=== PATIENT | male | born 1960 | race Asian ===

== ENCOUNTER 2017-08-04 08:53 | Emergency (ER) | payer MEDICAID, OTHER ==
[2017-08-04] MEDS ORDERED: NS 1,000 ML IV ONE (09:30)
[2017-08-04] MEDS ORDERED: KETOROLAC 30 MG/1 ML SDV IVP ONE (09:35)
[2017-08-04] MEDS ORDERED: ONDANSETRON 4 MG/2 ML VIAL IVP ONE (09:35)
[2017-08-04 09:38] LABS: PLATELET COUNT 187 10^3/uL (150-400)
[2017-08-04] MEDS ORDERED: TAMSULOSIN HCL 0.4 MG CAP PO ONE (11:09)
--- NOTE | 2017-08-04 11:18 | EDPHY ---
H & P Time Seen by Provider: 08/04/17 09:10 HPI/ROS: HPI Left flank pain. 57-year-old male by private vehicle. This patient reports that he developed left flank pain with radiation to the left groin at approximately 5:00 a.m. This morning. He reports he has had some nausea but no vomiting. He reports 2 similar episodes of this pain in the last week that were less extreme and self resolved after short period of time. He reports that this pain has been unrelenting. He describes it as cramping and aching. No fever. No gross hematuria. No history of trauma. No other complaints. ROS: Constitutional: No fever, no chills. No weakness. Eyes: No discharge. No changes in vision. ENT: No sore throat. No nasal congestion or rhinorrhea. Respiratory: No cough. No shortness of breath. Cardiac: No chest pain, no palpitations. Gastrointestinal: No abdominal pain, no vomiting, no diarrhea. Genitourinary: No hematuria. No dysuria or increased frequency with urination. Musculoskeletal: As above. No neck pain. No myalgias or arthralgias. Skin: No rashes. Neurological: No headache. No focal weakness or altered sensation. Past medical history: Kidney stones. Social history: Nonsmoker. Here by himself. No alcohol. Physical Exam: General Appearance: Alert, uncomfortable but not in distress. This patient is responding to questions appropriately and in full sentences. This patient appears well-hydrated and well-nourished. Eyes: Pupils equal and round no pallor or injection. No lid edema, erythema or injection. Respiratory: There are no retractions, lungs are clear to auscultation with good air movement bilaterally. Cardiovascular: Regular rate and rhythm. No murmur. Gastrointestinal: Abdomen is soft with mild and vague left lower quadrant tenderness on palpation, no masses, bowel sounds normal. No focal tenderness at McBurney's point. No Weaver sign. Neurological: Motor sensory function is grossly intact. Cranial nerves are normal. Gait is normal. Skin: Warm and dry, no rashes. Musculoskeletal: Vague left CVA tenderness on palpation. No right CVA tenderness on palpation. Extremities are symmetrical. All joints range without pain or impingement. Psychiatric: No agitation. No depression. Database: EKG: Imaging: CT scan of abdomen and pelvis with contrast: 6 mm left-sided stone at the level of L5 with moderate obstructive uropathy. Results were discussed with staff radiologist Dr. Anurag Alejandra. Procedures: Emergency department course: Vital signs reviewed and are normal. IV was placed. He was started on IV normal saline with 1 L to be given over the next hour. He was initially given 4 mg of IV Zofran and 30 mg of IV Toradol. No contraindications to NSAIDs. Denies any history of renal dysfunction or peptic ulcer disease. 11:15 a.m., patient re-evaluated. Pain is well controlled at this time. He was given 0.4 mg of oral Flomax. I discussed the results of his CT imaging. I discussed admission based on the size of the stone for pain control. Currently he states his pain is well controlled. He does not want to be admitted at this time. He is concerned about cost. He is requesting discharge. Plan will be to discharge him with prescriptions for Vicodin, Flomax and Zofran. I will have him follow up with Urology in the next 1-2 days. He lives near the hospital and can easily return to the hospital should his pain worsen or should he have other concerns. He understands his follow-up. Return to emergency department precautions were thoroughly reviewed with him. All of his questions were answered. He was discharged in good condition from the emergency department. Differential Diagnosis: The differential diagnosis on this patient includes but is not limited to kidney stone. Pyelonephritis, testicular torsion, diverticulitis unlikely. This represents a partial list of diagnoses considered. These considerations are based on history, physical exam, past history, reassessment and diagnostic testing. Smoking Status: Never smoked Constitutional: Initial Vital Signs Temperature (C) 36.5 C 08/04/17 08:56 Heart Rate 72 08/04/17 08:56 Respiratory Rate 16 08/04/17 08:56 Blood Pressure 136/97 H 08/04/17 08:56 O2 Sat (%) 97 08/04/17 08:56 O2 Delivery Mode Room Air Allergies/Adverse Reactions: Penicillins Allergy (Verified 08/26/13 15:17) Home Medications: Medication Instructions Recorded Docusate Sodium [Colace 100 MG (*)] 100 mg PO TID #20 cap 08/04/17 Hydrocodone/APAP 5/325 [[place] 1 - 2 tab PO Q4-6PRN PRN #14 tab 08/04/17 5/325 (*)] Ondansetron Odt [Zofran Odt 4 mg 4 mg PO Q4PRN PRN #10 tab 08/04/17 (*)] Tamsulosin HCl [Flomax 0.4 MG (*)] 0.4 mg PO DAILY #4 cap 08/04/17 Medical Decision Making - Diagnostics Imaging Results: Imaging Impressions Abdomen/Pelvis CT 08/04/17 09:35 Impression: 1. 6 mm stone in the left ureter at the level of L5 with moderate obstructive uropathy. 2. Cholelithiasis without evidence of cholecystitis. 3. Additional findings as above. Findings discussed with Angel Do MD 08/04/2017 at 10:03 a.m. Attention: This CT examination is specifically designed to evaluate patients who are clinically suspected of having acute obstructive uropathy. This examination does not use radiographic contrast, and as such, provides only a limited evaluation of the abdomen, pelvis and retroperitoneum. If there is further clinical suspicion for pathological conditions other than obstructive uropathy, a complete CT evaluation of the abdomen and pelvis utilizing intravenous and oral contrast should be considered. - Data Points Laboratory Results: Laboratory Results 08/04/17 09:15 08/04/17 09:15 08/04/17 08/04/17 08/04/17 09:15 09:15 09:00 WBC 9.33 10^3/uL 10^3/uL (3.80-9.50) RBC 5.33 10^6/uL 10^6/uL (4.40-6.38) Hgb 15.8 g/dL g/dL (13.7-17.5) Hct 46.6 % % (40.0-51.0) MCV 87.4 fL fL (81.5-99.8) MCH 29.6 pg pg (27.9-34.1) MCHC 33.9 g/dL g/dL (32.4-36.7) RDW 12.8 % % (11.5-15.2) Plt Count 187 10^3/uL 10^3/uL (150-400) MPV 10.5 fL fL (8.7-11.7) Neut % (Auto) 88.3 % H % (39.3-74.2) Lymph % (Auto) 6.5 % L % (15.0-45.0) [place] % (Auto) 3.8 % L % (4.5-13.0) Eos % (Auto) 0.6 % % (0.6-7.6) Baso % (Auto) 0.6 % % (0.3-1.7) Nucleat RBC Rel Count 0.0 % % (0.0-0.2) Absolute Neuts (auto) 8.23 10^3/uL H 10^3/uL (1.70-6.50) Absolute Lymphs (auto) 0.61 10^3/uL L 10^3/uL (1.00-3.00) Absolute Monos (auto) 0.35 10^3/uL 10^3/uL (0.30-0.80) Absolute Eos (auto) 0.06 10^3/uL 10^3/uL (0.03-0.40) Absolute Basos (auto) 0.06 10^3/uL 10^3/uL (0.02-0.10) Absolute Nucleated RBC 0.00 10^3/uL 10^3/uL (0-0.01) Immature Gran % 0.2 % % (0.0-1.1) Immature Gran # 0.02 10^3/uL 10^3/uL (0.00-0.10) Sodium 139 mEq/L mEq/L (135-145) Potassium 3.4 mEq/L L mEq/L (3.5-5.2) Chloride 102 mEq/L mEq/L (97-110) Carbon Dioxide 24 mEq/l mEq/l (22-31) Anion Gap 13 mEq/L mEq/L (8-16) BUN 12 mg/dL mg/dL (7-23) Creatinine 1.1 mg/dL mg/dL (0.7-1.3) Estimated GFR > 60 Glucose 112 mg/dL H mg/dL (70-100) Calcium 9.0 mg/dL mg/dL (8.5-10.4) Urine Color YELLOW Urine Appearance HAZY Urine pH 5.0 (5.0-7.5) Ur Specific [place] 1.023 (1.002-1.030) Urine Protein 1+ H (NEGATIVE) Urine Ketones NEGATIVE (NEGATIVE) Urine Blood 3+ H (NEGATIVE) Urine Nitrate NEGATIVE (NEGATIVE) Urine Bilirubin NEGATIVE (NEGATIVE) Urine Urobilinogen NEGATIVE EU EU (0.2-1.0) Ur Leukocyte Esterase NEGATIVE (NEGATIVE) Urine RBC 50-182 /hpf H /hpf (0-3) Urine WBC 1-3 /hpf /hpf (0-3) Ur Epithelial Cells NONE SEEN /lpf /lpf (NONE-1+) Calcium Oxalate Crystal PRESENT /hpf /hpf (NONE-1+) Urine Mucus 3+ /lpf H /lpf (NONE-1+) Urine Glucose NEGATIVE (NEGATIVE) Medications Given: Discontinued Medications Sodium Chloride (Ns) 1,000 mls @ 0 mls/hr IV EDNOW ONE; Wide Open PRN Reason: Protocol Stop: 08/04/17 09:31 Last Admin: 08/04/17 09:55 Dose: 1,000 mls Ketorolac Tromethamine (Toradol) 30 mg IVP EDNOW ONE Stop: 08/04/17 09:36 Last Admin: 08/04/17 09:56 Dose: 30 mg Ondansetron HCl (Zofran) 4 mg IVP EDNOW ONE Stop: 08/04/17 09:36 Last Admin: 08/04/17 09:56 Dose: 4 mg Departure - Departure Disposition: Home, Routine, Self-Care Clinical Impression: Renal colic on left side, Kidney stone on left side Condition: Good Instructions: Kidney Stones (ED) Additional Instructions: Read and follow provided instructions. Follow-up with Urology in the next 1-2 days for re-evaluation. I have provided you with a referral. Call their office from home this afternoon to schedule an appointment. Explained this is for an emergency department follow-up. Take medication as prescribed. You can start taking ibuprofen after 8:00 p.m. Tonight. Ibuprofen dosin mg every 6 hours with meals for the next 3 days only. Take only as needed for pain. Return to the emergency department for worsening pain, fever, vomiting or other serious concerns. Referrals: Jocy Gibbs MD [Medical Doctor] - As per Instructions Prescriptions: Docusate Sodium [Colace 100 MG (*)] 100 mg PO TID #20 cap Hydrocodone/APAP 5/325 [[place] 5/325 (*)] 1 - 2 tab PO Q4-6PRN PRN #14 tab PRN Reason: Pain, Moderate Ondansetron Odt [Zofran Odt 4 mg (*)] 4 mg PO Q4PRN PRN #10 tab PRN Reason: For Nausea & Vomiting Tamsulosin HCl [Flomax 0.4 MG (*)] 0.4 mg PO DAILY #4 cap
[2017-08-04] MEDS ORDERED: ONDANSETRON 4MG PREPACK#2 BTL TAKEHOME ONE (11:29)
[2017-08-04] MEDS ORDERED: HYDROCOD/APAP 5/325 PREPACK#6 BTL TAKEHOME ONE (11:29)
[2017-08-04 11:42] VITALS: BP 128/76
== END 2017-08-04 11:52 | disposition home or self-care (01) ==
DX: N20.0 Calculus of kidney (principal); N23 Unspecified renal colic; E86.9 Volume depletion, unspecified
CPT/HCPCS: 96374; J1885; J2405

== ENCOUNTER 2018-04-06 02:08 | Emergency (ER) | payer MEDICAID ==
[2018-04-06] MEDS ORDERED: NS 1,000 ML IV ONE (02:31)
[2018-04-06] MEDS ORDERED: KETOROLAC 15 MG/1 ML SDV IVP ONE (02:31)
--- NOTE | 2018-04-06 02:33 | EDPHY ---
H & P Stated Complaint: LLQ ABD PAIN THINKS MAY BE KIDNEY STONE Time Seen by Provider: 04/06/18 02:18 HPI/ROS: Chief Complaint: Left-sided abdominal pain HPI: 57-year-old male presenting with left-sided abdominal pain for the last 24 hr. Patient says he had similar pain about 6 months ago at which time he was diagnosed with a kidney stone. He is able to passed stone and was seen by Urology. He has been having some intermittent pain since which has been radiating to his testicle. None for the last several weeks. This pain began yesterday and is waxing and waning. In the left lower abdomen with some radiation to his groin. Some nausea but no vomiting. No fevers or chills. No numbness or weakness. No falls or injuries. 2 hr ago the pain was severe. He did take 1 Vicodin which was left over from his prior admission and now states that his pain is significantly improved. At worst pain is about an 8/10. ROS: 10 systems were reviewed and were negative except those elements noted in the HPI. PMH: Kidney stone Social History: No smoking, no alcohol, no recreational drug use Family History: non-contributory Physical Exam: Gen: Awake, Alert, No Distress HEENT: Nose: no rhinorrhea Eyes: PERRLA, EOMI Mouth: Moist mucosa Neck: Supple, no JVD Chest: nontender, lungs clear to auscultation Heart: S1, S2 normal, no murmur Abd: Soft, non-tender, no guarding Back: no CVA tenderness, no midline tenderness Ext: no edema, non-tender Skin: no rash Neuro: CN II-XII intact, Sensation grossly intact, Strength 5/5 in bilateral upper and lower extremities - Personal History Current Tetanus/Diphtheria Vaccine: Unsure Current Tetanus Diphtheria and Acellular Pertussis (TDAP): Unsure - Medical/Surgical History Hx Asthma: No Hx Chronic Respiratory Disease: No Hx Diabetes: No Hx Cardiac Disease: No Hx Renal Disease: No Hx Cirrhosis: No Hx Alcoholism: No Hx HIV/AIDS: No Hx Splenectomy or Spleen Trauma: No Other PMH: renal calculi - Social History Smoking Status: Never smoked Constitutional: Initial Vital Signs Temperature (C) 36.6 C 04/06/18 02:17 Heart Rate 81 04/06/18 02:17 Respiratory Rate 18 04/06/18 02:17 Blood Pressure 143/105 H 04/06/18 02:17 O2 Sat (%) 94 04/06/18 02:17 O2 Delivery Mode Room Air Allergies/Adverse Reactions: Penicillins Allergy (Verified 04/06/18 02:22) Home Medications: Medication Instructions Recorded Docusate Sodium [Colace 100 MG (*)] 100 mg PO TID #20 cap 08/04/17 Hydrocodone/APAP 5/325 [[place] 1 - 2 tab PO Q4-6PRN PRN #14 tab 08/04/17 5/325 (*)] Ondansetron Odt [Zofran Odt 4 mg 4 mg PO Q4PRN PRN #10 tab 08/04/17 (*)] Tamsulosin HCl [Flomax 0.4 MG (*)] 0.4 mg PO DAILY #4 cap 08/04/17 Hydrocodone/Acetaminophen 1 - 2 each PO Q4-6PRN PRN #10 04/06/18 [Hydrocodon-Acetaminophen 5-325] tablet Tamsulosin HCl 0.4 mg PO DAILY #10 cap 04/06/18 Medical Decision Making ED Course/Re-evaluation: 57-year-old male with hematuria and left-sided abdominal pain consistent with a kidney stone. Abdomen is soft and benign. Pain is relieved with medicine he took at home. He already has an appointment with Urology in a few days. Will discharge continuing with ibuprofen, Vicodin and tamsulosin, return for any concerns. - Data Points Laboratory Results: Laboratory Results 04/06/18 02:35 04/06/18 02:35 04/06/18 04/06/18 04/06/18 03:00 02:35 02:35 WBC 5.25 10^3/uL 10^3/uL (3.80-9.50) RBC 4.81 10^6/uL 10^6/uL (4.40-6.38) Hgb 14.4 g/dL g/dL (13.7-17.5) Hct 42.8 % % (40.0-51.0) MCV 89.0 fL fL (81.5-99.8) MCH 29.9 pg pg (27.9-34.1) MCHC 33.6 g/dL g/dL (32.4-36.7) RDW 12.6 % % (11.5-15.2) Plt Count 173 10^3/uL 10^3/uL (150-400) MPV 11.0 fL fL (8.7-11.7) Neut % (Auto) 49.1 % % (39.3-74.2) Lymph % (Auto) 24.4 % % (15.0-45.0) [place] % (Auto) 14.1 % H % (4.5-13.0) Eos % (Auto) 10.1 % H % (0.6-7.6) Baso % (Auto) 1.9 % H % (0.3-1.7) Nucleat RBC Rel Count 0.0 % % (0.0-0.2) Absolute Neuts (auto) 2.58 10^3/uL 10^3/uL (1.70-6.50) Absolute Lymphs (auto) 1.28 10^3/uL 10^3/uL (1.00-3.00) Absolute Monos (auto) 0.74 10^3/uL 10^3/uL (0.30-0.80) Absolute Eos (auto) 0.53 10^3/uL H 10^3/uL (0.03-0.40) Absolute Basos (auto) 0.10 10^3/uL 10^3/uL (0.02-0.10) Absolute Nucleated RBC 0.00 10^3/uL 10^3/uL (0-0.01) Immature Gran % 0.4 % % (0.0-1.1) Immature Gran # 0.02 10^3/uL 10^3/uL (0.00-0.10) Sodium 138 mEq/L mEq/L (135-145) Potassium 3.5 mEq/L mEq/L (3.5-5.2) Chloride 107 mEq/L mEq/L (97-110) Carbon Dioxide 22 mEq/l mEq/l (22-31) Anion Gap 9 mEq/L mEq/L (6-14) BUN 21 mg/dL mg/dL (7-23) Creatinine 0.9 mg/dL mg/dL (0.7-1.3) Estimated GFR > 60 Glucose 129 mg/dL H mg/dL (70-100) Calcium 9.0 mg/dL mg/dL (8.5-10.4) Urine Color PALE YELLOW Urine Appearance CLEAR Urine pH 6.0 (5.0-7.5) Ur Specific [place] 1.005 (1.002-1.030) Urine Protein NEGATIVE (NEGATIVE) Urine Ketones NEGATIVE (NEGATIVE) Urine Blood 3+ H (NEGATIVE) Urine Nitrate NEGATIVE (NEGATIVE) Urine Bilirubin NEGATIVE (NEGATIVE) Urine Urobilinogen NEGATIVE EU EU (0.2-1.0) Ur Leukocyte Esterase NEGATIVE (NEGATIVE) Urine RBC 3-5 /hpf H /hpf (0-3) Urine WBC 1-3 /hpf /hpf (0-3) Ur Epithelial Cells NONE SEEN /lpf /lpf (NONE-1+) Urine Mucus TRACE /lpf /lpf (NONE-1+) Urine Glucose NEGATIVE (NEGATIVE) Medications Given: Discontinued Medications Sodium Chloride (Ns) 1,000 mls @ 0 mls/hr IV ONCE ONE; Wide Open PRN Reason: Protocol Stop: 04/06/18 02:32 Last Admin: 04/06/18 02:37 Dose: 1,000 mls Ketorolac Tromethamine (Toradol) 15 mg IVP EDNOW ONE Stop: 04/06/18 02:32 Last Admin: 04/06/18 02:35 Dose: 15 mg Departure - Departure Disposition: Home, Routine, Self-Care Clinical Impression: Kidney stone Condition: Good Instructions: Kidney Stones (ED), How to Strain Your Urine (ED) Additional Instructions: Take ibuprofen, 600 mg every 8 hr. For worsening pain you may take [place] 1-2 tablets every 4-6 hours as needed for pain. Take tamsulosin as prescribed. Follow up with the urologist in 2-3 days for further evaluation. Return to the emergency department for uncontrolled pain, nausea, vomiting, fevers, chills, or any other concerns. Referrals: Ramon Gomez MD [Medical Doctor] - As per Instructions Prescriptions: Hydrocodone/Acetaminophen [Hydrocodon-Acetaminophen 5-325] 1 - 2 each PO Q4- 6PRN PRN #10 tablet PRN Reason: Pain, Severe Tamsulosin HCl 0.4 mg PO DAILY #10 cap
[2018-04-06 02:44] LABS: PLATELET COUNT 173 10^3/uL (150-400)
[2018-04-06] MEDS ORDERED: HYDROCOD/APAP 5/325 PREPACK#6 BTL TAKEHOME ONE (03:53)
[2018-04-06 04:03] VITALS: BP 137/87
== END 2018-04-06 04:02 | disposition home or self-care (01) ==
DX: N20.0 Calculus of kidney (principal); R31.9 Hematuria, unspecified
CPT/HCPCS: 96374; J1885

== ENCOUNTER 2018-05-22 06:38 | Emergency (ER) | payer MEDICAID ==
[2018-05-22] MEDS ORDERED: ONDANSETRON 4 MG/2 ML VIAL IVP ONE (07:04)
[2018-05-22] MEDS ORDERED: NS 1,000 ML IV ONE (07:04)
[2018-05-22] MEDS ORDERED: HYDROmorphONE/DILAUDID 2 MG/ML INJ IVP ONE (07:04)
--- NOTE | 2018-05-22 07:08 | EDPHY ---
H & P Stated Complaint: RUQ ABD PAIN X 30 MIN Time Seen by Provider: 05/22/18 07:02 HPI/ROS: CHIEF COMPLAINT: Epigastric pain HISTORY OF PRESENT ILLNESS: Patient is a 58-year-old man who developed sudden epigastric/right upper quadrant pain 30 min ago after eating a eggs and rice. He states that he feels nauseous but has not vomited. No diarrhea. No recent fevers. He felt well yesterday. The patient has dealt with passing a kidney stone over the last several weeks in the left side but states that that is not the concerned today. He denies other significant medical history. He denies chest pain or shortness of breath. He spent a long time telling me about his herbal heat pack that he uses and warms up in the microwave to control his pain. Severity: Moderate Modifying factors: Some improvement with heat pack REVIEW OF SYSTEMS: Constitutional: denies: chills, fever, recent illness, recent injury EENTM: denies: blurred vision, double vision, nose congestion Respiratory: denies: cough, shortness of breath Cardiac: denies: chest pain, irregular heart rate, lightheadedness, palpitations Gastrointestinal/Abdominal: See HPI Genitourinary: denies: dysuria, frequency, hematuria, pain Musculoskeletal: denies: joint pain, muscle pain Skin: denies: lesions, rash, jaundice, bruising Neurological: denies: headache, numbness, paresthesia, tingling, dizziness, weakness Hematologic/Lymphatic: denies: blood clots, easy bleeding, easy bruising Immunologic/allergic: denies: HIV/AIDS, transplant 10 systems reviewed and negative except as noted EXAM: GENERAL: Moderate distress, uncomfortable. HEAD: Atraumatic, normocephalic. EYES: Pupils equal round and reactive to light, extraocular movements intact, sclera anicteric, conjunctiva are normal. ENT: TMs normal, nares patent, oropharynx clear without exudates. Moist mucous membranes. NECK: Normal range of motion, supple without lymphadenopathy or JVD. LUNGS: Breath sounds clear to auscultation bilaterally and equal. No wheezes rales or rhonchi. HEART: Regular rate and rhythm without murmurs, rubs or gallops. ABDOMEN: Epigastric and right upper quadrant pain, nontender, normoactive bowel sounds. No guarding, no rebound. No masses appreciated. BACK: No CVA tenderness, no spinal tenderness, step-offs or deformities EXTREMITIES: Normal range of motion, no pitting or edema. No clubbing or cyanosis. NEUROLOGICAL: Cranial nerves II through XII grossly intact. Normal speech, normal gait. 5/5 strength, normal movement in all extremities, normal sensation , normal reflexes PSYCH: Normal mood, normal affect. SKIN: Warm, dry, normal turgor, no visible rashes or lesions. Source: Patient, Family Exam Limitations: No limitations - Personal History Current Tetanus Diphtheria and Acellular Pertussis (TDAP): No - Medical/Surgical History Hx Asthma: No Hx Chronic Respiratory Disease: No Hx Diabetes: No Hx Cardiac Disease: No Hx Renal Disease: No Hx Cirrhosis: No Hx Alcoholism: No Hx HIV/AIDS: No Hx Splenectomy or Spleen Trauma: No Other PMH: renal calculi - Family History Significant Family History: No pertinent family hx - Social History Smoking Status: Never smoked Alcohol Use: None Constitutional: Initial Vital Signs Temperature (C) 36.5 C 05/22/18 06:55 Heart Rate 63 05/22/18 06:55 Respiratory Rate 16 05/22/18 06:55 Blood Pressure 127/89 H 05/22/18 06:55 O2 Sat (%) 95 05/22/18 06:55 O2 Delivery Mode Room Air Allergies/Adverse Reactions: Penicillins Allergy (Verified 04/06/18 02:22) Home Medications: Medication Instructions Recorded Hydrocodone/APAP 5/325 [[place] 1 - 2 tab PO Q4H PRN #10 tab 05/22/18 5/325 (RX)] Medical Decision Making - Diagnostics EKG Interpretation: An EKG obtained and was read and documented in trace view. Please see trace view for full reading and report. Sinus rhythm, no acute ischemic changes Imaging Results: Imaging Impressions Abdomen Ultrasound 05/22/18 07:05 Impression: 1. Cholelithiasis without ultrasound evidence of cholecystitis. 2. Pancreas is obscured Imaging: Discussed imaging studies w/ call center assistant Radiologist ED Course/Re-evaluation: 10:00 a.m. we had a long discussion about the patient's ultrasound lab results. He previously new about having gallstones because a CT scan for his kidney stone. He does have some blood in his urine which is likely from the kidney stone that he has been passing. He states that he has been taking normal medication to dissolve the stones and wonder if this is what caused his pain today. His pain is now resolved. I will have him follow up with General surgery for elective cholecystectomy. Discussed indications for returning to the emergency department. Differential Diagnosis: Partial list of the Differential diagnosis considered include but were not limited to; cholelithiasis, cholecystitis, GERD, pancreatitis, kidney stone and although unlikely based on the history and physical exam, I also considered urinary tract infection, acute coronary disease, pneumonia, PE. - Data Points Laboratory Results: Laboratory Results 05/22/18 07:25 05/22/18 07:25 05/22/18 05/22/18 05/22/18 08:25 07:29 07:25 WBC RBC Hgb Hct MCV MCH MCHC RDW Plt Count MPV Neut % (Auto) Lymph % (Auto) [place] % (Auto) Eos % (Auto) Baso % (Auto) Nucleat RBC Rel Count Absolute Neuts (auto) Absolute Lymphs (auto) Absolute Monos (auto) Absolute Eos (auto) Absolute Basos (auto) Absolute Nucleated RBC Immature Gran % Immature Gran # Sodium 140 mEq/L mEq/L (135-145) Potassium 3.7 mEq/L mEq/L (3.5-5.2) Chloride 108 mEq/L mEq/L (97-110) Carbon Dioxide 24 mEq/l mEq/l (22-31) Anion Gap 8 mEq/L mEq/L (6-14) BUN 13 mg/dL mg/dL (7-23) Creatinine 0.9 mg/dL mg/dL (0.7-1.3) Estimated GFR > 60 Glucose 142 mg/dL H mg/dL (70-100) Calcium 8.7 mg/dL mg/dL (8.5-10.4) Total Bilirubin 0.5 mg/dL mg/dL (0.1-1.4) Conjugated Bilirubin 0.2 mg/dL mg/dL (0.0-0.5) Unconjugated Bilirubin 0.3 mg/dL mg/dL (0.0-1.1) AST 102 IU/L H IU/L (17-59) ALT 71 IU/L IU/L (21-72) Alkaline Phosphatase 89 IU/L IU/L (38-126) POC Troponin I 0.00 ng/mL ng/mL (0.00-0.08) Total Protein 7.2 g/dL g/dL (6.3-8.2) Albumin 4.3 g/dL g/dL (3.5-5.0) Lipase 160 IU/L IU/L (23-300) Urine Color PALE YELLOW Urine Appearance CLEAR Urine pH 7.0 (5.0-7.5) Ur Specific [place] 1.010 (1.002-1.030) Urine Protein NEGATIVE (NEGATIVE) Urine Ketones NEGATIVE (NEGATIVE) Urine Blood 1+ H (NEGATIVE) Urine Nitrate NEGATIVE (NEGATIVE) Urine Bilirubin NEGATIVE (NEGATIVE) Urine Urobilinogen NEGATIVE EU EU (0.2-1.0) Ur Leukocyte Esterase NEGATIVE (NEGATIVE) Urine RBC 25-50 /hpf H /hpf (0-3) Urine WBC 1-3 /hpf /hpf (0-3) Ur Epithelial Cells NONE SEEN /lpf /lpf (NONE-1+) Urine Mucus TRACE /lpf /lpf (NONE-1+) Urine Glucose NEGATIVE (NEGATIVE) 05/22/18 07:25 WBC 4.88 10^3/uL 10^3/uL (3.80-9.50) RBC 5.04 10^6/uL 10^6/uL (4.40-6.38) Hgb 14.8 g/dL g/dL (13.7-17.5) Hct 44.2 % % (40.0-51.0) MCV 87.7 fL fL (81.5-99.8) MCH 29.4 pg pg (27.9-34.1) MCHC 33.5 g/dL g/dL (32.4-36.7) RDW 13.1 % % (11.5-15.2) Plt Count 176 10^3/uL 10^3/uL (150-400) MPV 10.8 fL fL (8.7-11.7) Neut % (Auto) 48.8 % % (39.3-74.2) Lymph % (Auto) 33.8 % % (15.0-45.0) [place] % (Auto) 10.7 % % (4.5-13.0) Eos % (Auto) 5.9 % % (0.6-7.6) Baso % (Auto) 0.6 % % (0.3-1.7) Nucleat RBC Rel Count 0.0 % % (0.0-0.2) Absolute Neuts (auto) 2.38 10^3/uL 10^3/uL (1.70-6.50) Absolute Lymphs (auto) 1.65 10^3/uL 10^3/uL (1.00-3.00) Absolute Monos (auto) 0.52 10^3/uL 10^3/uL (0.30-0.80) Absolute Eos (auto) 0.29 10^3/uL 10^3/uL (0.03-0.40) Absolute Basos (auto) 0.03 10^3/uL 10^3/uL (0.02-0.10) Absolute Nucleated RBC 0.00 10^3/uL 10^3/uL (0-0.01) Immature Gran % 0.2 % % (0.0-1.1) Immature Gran # 0.01 10^3/uL 10^3/uL (0.00-0.10) Sodium Potassium Chloride Carbon Dioxide Anion Gap BUN Creatinine Estimated GFR Glucose Calcium Total Bilirubin Conjugated Bilirubin Unconjugated Bilirubin AST ALT Alkaline Phosphatase POC Troponin I Total Protein Albumin Lipase Urine Color Urine Appearance Urine pH Ur Specific [place] Urine Protein Urine Ketones Urine Blood Urine Nitrate Urine Bilirubin Urine Urobilinogen Ur Leukocyte Esterase Urine RBC Urine WBC Ur Epithelial Cells Urine Mucus Urine Glucose Medications Given: Discontinued Medications Hydromorphone HCl (Dilaudid) 0.5 mg IVP EDNOW ONE Stop: 05/22/18 07:05 Last Admin: 05/22/18 07:21 Dose: 0.5 mg Sodium Chloride (Ns) 1,000 mls @ 0 mls/hr IV EDNOW ONE; Wide Open PRN Reason: Protocol Stop: 05/22/18 07:05 Last Admin: 05/22/18 07:20 Dose: 1,000 mls Ondansetron HCl (Zofran) 4 mg IVP EDNOW ONE Stop: 05/22/18 07:05 Last Admin: 05/22/18 07:20 Dose: 4 mg Point of Care Test Results: Chemistry 05/22/18 07:29 POC Troponin I 0.00 ng/mL ng/mL (0.00-0.08) Departure - Departure Disposition: Home, Routine, Self-Care Clinical Impression: Gall stone Qualifiers: Cholecystitis presence: without cholecystitis Biliary obstruction: without biliary obstruction Qualified Code(s): K80.20 - Calculus of gallbladder without cholecystitis without obstruction Condition: Fair Instructions: Gallstones (ED) Referrals: NONE *PRIMARY CARE P,. [Primary Care Provider] - As per Instructions Jonas Montes MD [Medical Doctor] - As per Instructions Prescriptions: Hydrocodone/APAP 5/325 [[place] 5/325 (RX)] 1 - 2 tab PO Q4H PRN #10 tab PRN Reason: Pain, Moderate
[2018-05-22 07:35] LABS: PLATELET COUNT 176 10^3/uL (150-400)
--- NOTE | 2018-05-22 07:42 | CPEKG ---
Test Reason : OPEN Blood Pressure : / mmHG Vent. Rate : 066 BPM Atrial Rate : 066 BPM P-R Int : 134 ms QRS Dur : 093 ms QT Int : 391 ms P-R-T Axes : 020 -10 022 degrees QTc Int : 410 ms Sinus rhythm Confirmed by Joss El ([id number]) on 05/22/2018 7:41:30 AM Referred By: JOSS EL Confirmed By:Joss El
[2018-05-22 10:32] VITALS: BP 140/96
== END 2018-05-22 10:33 | disposition home or self-care (01) ==
DX: K80.20 Calculus of gallbladder without cholecystitis without obstruction (principal)
CPT/HCPCS: 84484-ER; 96374; J1170; J2405

== ENCOUNTER → 2018-06-24 | Outpatient (CLI) | payer MEDICAID | LOC: FIMAGING 15:48 | PROVIDERS: ATTEND Specialist | DX: R93.5 Abnormal findings on diagnostic imaging of other abdominal regions, including retroperitoneum (principal); Z87.442 Personal history of urinary calculi ==

== ENCOUNTER → 2018-06-30 | Outpatient (CLI) | payer MEDICAID | LOC: FIMAGING 08:07 | PROVIDERS: ATTEND Specialist | DX: Z87.442 Personal history of urinary calculi (principal) ==

== ENCOUNTER 2018-08-22 14:25 | Emergency (ER) | payer MEDICAID ==
[2018-08-22] MEDS ORDERED: NS 1,000 ML IV ONE (15:00)
[2018-08-22 15:41] LABS: PLATELET COUNT 187 10^3/uL (150-400)
--- NOTE | 2018-08-22 16:15 | EDPHY ---
H & P Time Seen by Provider: 08/22/18 14:58 HPI/ROS: HPI Left flank, left lower quadrant abdominal pain. 58-year-old male by private vehicle. The patient has a history of kidney stones. He presents to the emergency department with complaint of left lower quadrant abdominal pain with some radiation up into his left flank area. Onset at 9:00 a.m. This morning. He reports that this pain is consistent with pain he has had in the past with his kidney stones. He denies nausea or vomiting. Last meal was at 9:00 a.m.. He had a bowel movement earlier this morning. Denies any bloody or melenic stool. No gross hematuria. ROS: Constitutional: No fever, no chills. No weakness. Eyes: No discharge. No changes in vision. ENT: No sore throat. No nasal congestion or rhinorrhea. Respiratory: No cough. No shortness of breath. Cardiac: No chest pain, no palpitations. Gastrointestinal: As above, no vomiting, no diarrhea. Genitourinary: No hematuria. No dysuria or increased frequency with urination. Musculoskeletal: As above. No neck pain. No myalgias or arthralgias. Skin: No rashes. Neurological: No headache. No focal weakness or altered sensation. Past medical history: Renal calculi. Social history: He is here by himself. No alcohol. Does not smoke. Physical Exam: General Appearance: Alert, he appears mildly uncomfortable but he is not in distress. This patient is responding to questions appropriately and in full sentences. This patient appears well-hydrated and well-nourished. Eyes: Pupils equal and round no pallor or injection. No lid edema, erythema or injection. Respiratory: There are no retractions, lungs are clear to auscultation with good air movement bilaterally. Cardiovascular: Regular rate and rhythm. No murmur. Gastrointestinal: Abdomen is soft with mild and vague left lower quadrant tenderness on palpation, no masses, bowel sounds normal. No focal tenderness at McBurney's point. No Weaver sign. Genitourinary: Uncircumcised penis. Testicular exam is unremarkable. No clinical evidence of torsion. Neurological: Motor sensory function is grossly intact. Cranial nerves are normal. Gait is normal. Skin: Warm and dry, no rashes. Musculoskeletal: No CVA tenderness on palpation bilaterally. Extremities are symmetrical. All joints range without pain or impingement. Psychiatric: No agitation. No depression. Database: EKG: Imaging: CT abdomen and pelvis without contrast: Significant for a left sided UVJ calculus measuring 7 mm x 5 mm. This is likely the same stone was seen on a study in 2018. The patient now has moderate hydronephrosis associated with this and perinephric stranding. Results were discussed with staff radiologist Dr. Art Meeks. Procedures: Emergency department course: Triage vital signs reviewed. He is mildly hypertensive. Vital signs are otherwise unremarkable. He is afebrile. IV was placed. He was started on IV normal saline with 1 L to be given over the next hour. At this time he declines any antiemetics or pain medication. He will be sent for noncontrast CT scan of his abdomen and pelvis. 5:40 p.m., the patient was re-evaluated, he appears comfortable at this time. The patient was given 0.4 mg of Flomax. I discussed the results of his CT scan with him. From his history he appears to be aware that he has had this stone in the past. Both myself and the radiologist feel that this is the same stone that was seen on imaging from I year ago. He has not required any pain medication or antiemetics in the emergency department. His urologist is Dr. Gomez. I will call the on-call urologist for that group to discuss further management and disposition. 6:00 p.m., I spoke with Luz Farrell with [facility] regarding this patient. She feels that it is reasonable that the patient be seen in the office. I have prescribed Flomax as well as [place] and ibuprofen for pain control. The patient will be seen on Thursday in the office for re-evaluation and further management of his left distal ureteral calculus. This plan was discussed with the patient in detail. He understands his follow-up. Return to emergency department precautions were reviewed with him thoroughly. All of his questions were answered. He was discharged from the emergency department in good condition. Differential Diagnosis: The differential diagnosis on this patient includes but is not limited to ureterolithiasis. Diverticulitis, volvulus, testicular torsion, urinary tract infection, appendicitis unlikely. This represents a partial list of diagnoses considered. These considerations are based on history, physical exam, past history, reassessment and diagnostic testing. Smoking Status: Never smoked Constitutional: Initial Vital Signs Temperature (C) 36.7 C 08/22/18 14:32 Heart Rate 85 08/22/18 14:32 Respiratory Rate 16 08/22/18 14:32 Blood Pressure 127/101 H 08/22/18 14:32 O2 Sat (%) 97 08/22/18 14:32 O2 Delivery Mode Room Air Allergies/Adverse Reactions: Penicillins Allergy (Verified 04/06/18 02:22) Home Medications: Medication Instructions Recorded Hydrocodone/APAP 5/325 [[place] 1 - 2 tab PO Q4-6PRN PRN #10 tab 08/22/18 5/325 (*)] Potassium Citrate 08/22/18 Tamsulosin HCl [Flomax 0.4 MG (*)] 0.4 mg PO DAILY #4 cap 08/22/18 Medical Decision Making - Data Points Laboratory Results: Laboratory Results 08/22/18 15:22 08/22/18 15:22 Medications Given: Discontinued Medications Hydrocodone Bitart/Acetaminophen ([place] 5/325mg Prepack#6) 1 btl TAKEHOME EDNOW ONE Stop: 08/22/18 18:13 Last Admin: 08/22/18 18:24 Dose: 1 btl Sodium Chloride (Ns) 1,000 mls @ 0 mls/hr IV EDNOW ONE; Wide Open PRN Reason: Protocol Stop: 08/22/18 15:01 Last Admin: 08/22/18 15:29 Dose: 1,000 mls Tamsulosin HCl (Flomax) 0.4 mg PO EDNOW ONE Stop: 08/22/18 17:32 Last Admin: 08/22/18 18:23 Dose: 0.4 mg Departure - Departure Disposition: Home, Routine, Self-Care Clinical Impression: Kidney stone on left side Condition: Good Instructions: Hydrocodone/Acetaminophen (By mouth), Kidney Stones (ED) Additional Instructions: Read and follow provided instructions. Follow-up with either Luz Farrell or Dr. Gomez with the [facility] on Thursday for re-evaluation and further management of your left kidney stone. Call their office Thursday morning at 9:00 a.m.. Explain that your seen in the emergency department and that your to see either Fabienne Farrell or Dr. Gomez on Thursday in their clinic. I spoke with Fabienne Farrell personally regarding your care. Take Flomax/tamsulosin medication as prescribed. Only 1, 0.4 mg tablet daily. Narcotic pain medication: Take 1-2 every 4-6 hours as needed for pain. Do not drive on this medication. Ibuprofen dosin mg every 6 hours with meals for the next 3 days only. Take only as needed for pain. Return to the emergency department for worsening or uncontrolled pain, fever, vomiting, difficulty urinating or other serious concerns. Referrals: Fabienne Farrell, PAC [Physician Consumer Services Advisor] - As per Instructions [facility] (ED U,. [Edm Groups for Call Sched] - As per Instructions Prescriptions: Hydrocodone/APAP 5/325 [[place] 5/325 (*)] 1 - 2 tab PO Q4-6PRN PRN #10 tab PRN Reason: Pain, Moderate Tamsulosin HCl [Flomax 0.4 MG (*)] 0.4 mg PO DAILY #4 cap
[2018-08-22] MEDS: TAMSULOSIN HCL 0.4 MG CAP PO ONE ×2 (17:57→18:23)
[2018-08-22] MEDS ORDERED: HYDROCOD/APAP 5/325 PREPACK#6 BTL TAKEHOME ONE (18:12)
[2018-08-22 19:21] VITALS: BP 136/94
== END 2018-08-22 19:20 | disposition home or self-care (01) ==
DX: N20.0 Calculus of kidney (principal)